=== PATIENT | male | born 1955 | race Two or more races ===

== ENCOUNTER → 2016-08-08 | Outpatient (REF) | payer BC, OTHER ==
[~2016-08-08] MED LIST: /WARF25TA OR; ACET65TA OR; ALLOPOW4 PO; ASPI325T OR; ASPI81TA3; ASPI81TA45 OR; ATENPOW PO; ENALAPRIL HCTZ PO; ENALAPRIL/HCTZ; IBUP400T OR; IBUPROPHEN PO; INDO25CA2 OR; LIPITOR PO; NEUR100C OR; PERC5TAB8 OR; PERC7.5T8 OR
== END ==
LOC: M SMT 16:51
PROVIDERS: ATTEND Nurse Practitioner Women's Health
DX: R31.29 Other microscopic hematuria (principal)

== ENCOUNTER → 2017-09-15 | Outpatient (CLI) | payer OTHER | LOC: M RAD 15:20 | DX: R90.82 White matter disease, unspecified (principal); H90.A21 Sensorineural hearing loss, unilateral, right ear, with restricted hearing on the contralateral side | CPT/HCPCS: 70551 ==

== ENCOUNTER → 2019-08-26 | Outpatient (REF) | payer MEDICARE ==
[~2019-08-26] MED LIST changes: -/WARF25TA OR; +ALLO100T PO; +AMLO10TA5 PO; +ASPI81CH49 PO; +ASPI81TA26 PO; +ATEN25TA PO; +ATOR40TA75 PO; +COUM1TAB18 OR; +D3 PO; +FISH100049 PO; +FLOM0.4C39 PO; +LISI-542 PO; +PARO20TA3 PO; +VITA100018 SL
[2019-08-26 15:49] LABS: CREATININE FOR GFR 5.97 MG/DL (0.70-1.30); GLOMERULAR FILTRATION RATE 10.2 (>49)
== END ==
LOC: M LABDRAW1 14:00
PROVIDERS: ATTEND Orthopaedic Surgery
DX: M16.11 Unilateral primary osteoarthritis, right hip (principal)

== ENCOUNTER → 2021-11-29 | Outpatient (CLI) | payer MEDICARE ==
[~2021-11-29] MED LIST changes: -AMLO10TA5 PO; +AMLO1TAB25 PO; +ISOVUE-300 61% 50ML VIAL As Ordered ONE; +LIDOCAINE 1% MDV 20ML VIAL As Ordered ONE; -LISI-542 PO; +LISI5TAB11 PO; +TRIAMCINOLONE ACETONIDE SUSP 40 MG/ML VIAL (J3301) As Ordered ONE
== END ==
LOC: M RADPRO 13:00
PROVIDERS: ATTEND Orthopaedic Surgery
DX: M16.11 Unilateral primary osteoarthritis, right hip (principal)
CPT/HCPCS: 20610; 76000; J3301; Q9967